=== PATIENT | female | born 1955 | race Caucasian/White ===

== ENCOUNTER 2022-05-05 12:04 | Inpatient (IN) | payer OTHER ==
[2022-05-05] MEDS ORDERED: ALBUTEROL SO4 2.5/IPRATROPIUM 0.5 INH SOL 3 ML VIAL.NEB. NEB ONE ×2 (12:31→13:42)
[2022-05-05] MEDS ORDERED: methylPREDNISolone NA SUCC 125 MG/2 ML VIAL IVPB ONE (12:32)
[2022-05-05] MEDS ORDERED: SODIUM CHLORIDE 1,000 ML IV STA (12:35)
[2022-05-05 12:53] LABS: VENOUS O2 SATURATION 98.8 % (70-80); VENOUS PH 7.408 (7.310-7.410)
[2022-05-05 12:55] LABS: HEMATOCRIT 28.8 % (32.4-45.2); HEMOGLOBIN 9.7 GM/dL (10.7-15.3); MCH 33.3 pg (25.7-33.7); MCHC 33.8 g/dl (32.0-36.0); MEAN CELL VOLUME 98.6 fl (80-96); MEAN PLT VOLUME 9.3 fl (7.5-11.1); PLATELET COUNT 99 10^3/uL (134-434); RBC 2.92 M/mm3 (3.60-5.2); RDW 13.4 % (11.6-15.6)
[2022-05-05 13:02] LABS: INR 1.16 (0.83-1.09); PROTHROMBIN TIME (PATIENT) 13.4 SEC (9.7-13.0)
[2022-05-05 13:05] LABS: ACTIVATED PTT 25.6 SECONDS (25.2-36.5)
[2022-05-05 13:14] LABS: CALCIUM 7.9 mg/dL (8.5-10.1)
[2022-05-05 13:15] LABS: ALBUMIN 1.9 g/dl (3.4-5.0); BLOOD UREA NITROGEN 48.1 mg/dL (7-18)
[2022-05-05 13:18] LABS: CREATININE 1.1 mg/dL (0.55-1.3)
[2022-05-05 13:19] LABS: BILIRUBIN,TOTAL 0.7 mg/dL (0.2-1); TOT PROT 5.5 g/dl (6.4-8.2)
[2022-05-05 13:22] LABS: ARTERIAL BLD GAS O2 SATURATION 94.3 % (95-98); ARTERIAL BLOOD GAS BASE EXCESS 0.3 mmol/L (-2-2); ARTERIAL BLOOD GAS PO2 72.9 mmHg (80-100); ARTERIAL BLOOD GAS pH 7.374 (7.350-7.450)
[2022-05-05 13:22] LABS: ANISOCYTOSIS 0; HELMET CELLS 0; HOWELL-JOLLY BODIES 0; MACROCYTOSIS 0; OVALOCYTE 0; ROULEAU 0; SICKELED CELLS 0; TARGET CELLS 0; TEAR DROP CELLS 0; TOXIC GRANULATION 0
[2022-05-05 13:27] LABS: ALLENS TEST POSITIVE
[2022-05-05] MEDS ORDERED: ACETAMINOPHEN 1000 MG/100 ML BAG IVPB ONE (13:54)
[2022-05-05] MEDS: ALBUTEROL SO4 2.5/IPRATROPIUM 0.5 INH SOL 3 ML VIAL.NEB. NEB SCH ×2 (14:01→14:20)
[2022-05-05] MEDS ORDERED: ACETAMINOPHEN INJECTION 100 ML IVPB ONE (14:02)
[2022-05-05] MEDS ORDERED: CARBIDOPA/LEVODOPA 10/100 TABLET (FP) PO ONE (15:31)
[2022-05-05] MEDS ORDERED: DEXMEDETOMIDINE PREMIX 400 MCG/100 ML BAG IVPB SCH (20:00)
[2022-05-05] MEDS: DEXMEDETOMIDINE PREMIX 400 MCG/100 ML BAG IVPB SCH (23:22)
[2022-05-06 00:01] LABS: EPI CELLS 18 /uL (0-25.1); HYALINE CASTS 1 /uL (0-3.1); URINE APPEARANCE CLEAR; URINE BACTERIA 913 /uL (0-1359); URINE BILIRUBIN NEGATIVE (NEGATIVE); URINE COLOR YELLOW; URINE GLUCOSE (UA) NEGATIVE (NEGATIVE); URINE KETONE NEGATIVE (NEGATIVE); URINE LEUK ESTERASE 2+ (NEGATIVE); URINE NITRITE NEGATIVE (NEGATIVE); URINE PROTEIN 2+ (NEGATIVE); URINE UROBILINOGEN 0.2 mg/dL (0.2-1.0); URINE WBC 148 /uL (0-25.8)
[2022-05-06 01:45] LABS: URINE RBC 48.9 /uL (0-23.9); YEAST MODERATE (NEGATIVE)
[2022-05-06] MEDS ORDERED: LACTATED RINGERS SOLUTION 1,000 ML/1,000 ML INFUS.BAG IV STA (06:38)
[2022-05-06 12:50] LABS: HEMOGLOBIN 9.7 GM/dL (10.7-15.3); MCH 32.9 pg (25.7-33.7); MCHC 33.6 g/dl (32.0-36.0); MEAN CELL VOLUME 97.9 fl (80-96); MEAN PLT VOLUME 9.2 fl (7.5-11.1); PLATELET COUNT 104 10^3/uL (134-434); RBC 2.96 M/mm3 (3.60-5.2); RDW 13.8 % (11.6-15.6); WHITE BLOOD COUNT 10.2 K/mm3 (4.0-10.0)
[2022-05-06 13:19] LABS: CALCIUM 8.2 mg/dL (8.5-10.1)
[2022-05-06 13:20] LABS: BLOOD UREA NITROGEN 49.4 mg/dL (7-18)
[2022-05-06 13:21] LABS: MAGNESIUM 2.4 mg/dL (1.8-2.4)
[2022-05-06 13:23] LABS: CREATININE 0.8 mg/dL (0.55-1.3); PHOSPHOROUS 3.3 mg/dL (2.5-4.9)
[2022-05-06] MEDS ORDERED: DEXTROSE 5%-0.45% SALINE 1,000 ML IV SCH (16:45)
[2022-05-06] MEDS ORDERED: ALBUTEROL SO4 0.083% IH SOL 2.5 MG/3 ML VIAL.NEB. NEB PRN (16:56)
[2022-05-06] MEDS ORDERED: LORazepam 2 MG/ML SDV VIAL IVPUSH ONE (18:02)
[2022-05-06 19:44] LABS: ARTERIAL BLD GAS O2 SATURATION 99.7 % (95-98); ARTERIAL BLOOD GAS BASE EXCESS 0.2 mmol/L (-2-2); ARTERIAL BLOOD GAS PO2 313.1 mmHg (80-100); ARTERIAL BLOOD GAS pH 7.345 (7.350-7.450)
[2022-05-06 19:46] LABS: VENT MODE S/T; VENT RATE 16
[2022-05-06] MEDS: CARBIDOPA/LEVODOPA 10/100 TABLET (FP) PO SCH (21:10)
[2022-05-06] MEDS ORDERED: DOPAMINE 400 MG/D5W - 400,000 MCG/250 ML INFUS.BAG IVPB ONE (23:20)
[2022-05-07] MEDS: DEXMEDETOMIDINE PREMIX 400 MCG/100 ML BAG IVPB SCH ×2 (00:05→22:25)
[2022-05-07] MEDS: NOREPINEPHRINE BITARTRATE/D5W 8 MG/250 ML BAG IVPB SCH ×2 (00:12→23:55)
[2022-05-07] MEDS: PIPERACILLIN/TAZOB 3.375 GM 3.375 GM in DEXTROSE 5%-WATER - 50 ML IVPB SCH ×3 (00:17→10:00)
[2022-05-07] MEDS ORDERED: ACETAMINOPHEN 1000 MG/100 ML BAG IVPB PRN (03:02)
[2022-05-07] MEDS: CARBIDOPA/LEVODOPA 10/100 TABLET (FP) PO SCH ×4 (06:57→21:43)
[2022-05-07] MEDS ORDERED: LACTATED RINGERS SOLUTION 1000 ML INFUS.BAG IV ONE (07:13)
[2022-05-07] MEDS ORDERED: IBUPROFEN 800 MG/8 ML IJ IVPB ONE (07:20)
[2022-05-07 07:24] LABS: HEMATOCRIT 32.3 % (32.4-45.2); HEMOGLOBIN 10.7 GM/dL (10.7-15.3); MCHC 33.2 g/dl (32.0-36.0); MEAN CELL VOLUME 99.4 fl (80-96); MEAN PLT VOLUME 9.8 fl (7.5-11.1); PLATELET COUNT 179 10^3/uL (134-434); RBC 3.25 M/mm3 (3.60-5.2); RDW 13.9 % (11.6-15.6); WHITE BLOOD COUNT 16.6 K/mm3 (4.0-10.0)
[2022-05-07 08:16] LABS: ALBUMIN 2.1 g/dl (3.4-5.0); BLOOD UREA NITROGEN 62.2 mg/dL (7-18); CALCIUM 8.5 mg/dL (8.5-10.1)
[2022-05-07 08:21] LABS: BILIRUBIN,TOTAL 0.6 mg/dL (0.2-1); TOT PROT 6.3 g/dl (6.4-8.2)
[2022-05-07] MEDS ORDERED: PIPERACILLIN/TAZOB 3.375 GM 3.375 GM in DEXTROSE 5%-WATER - 50 ML IVPB SCH (09:00)
[2022-05-07] MEDS: ENOXAPARIN NA (PORCINE) 40 MG/0.4 ML DISP.SYRIN SQ SCH (10:03)
[2022-05-07] MEDS: PANTOPRAZOLE SODIUM 40 MG VIAL IVPUSH SCH (10:03)
[2022-05-07] MEDS: ESCITALOPRAM OXALATE 20 MG TABLET PO SCH (10:04)
[2022-05-07] MEDS: buPROPion HCL 75 MG TABLET PO SCH (10:05)
[2022-05-07] MEDS ORDERED: DEXTROSE 5%-0.45% SALINE 1,000 ML IV SCH (13:00)
[2022-05-07] MEDS: CARBIDOPA/LEVODOPA 25/250 TABLET (FP) PO SCH (17:00)
[2022-05-07] MEDS: PIPERACILLIN/TAZOB 4.5 GM 4.5 GM in DEXTROSE 5%-WATER 100 ML IVPB SCH (18:13)
[2022-05-07] MEDS: ACETAMINOPHEN 1000 MG/100 ML BAG IVPB PRN (18:54)
[2022-05-08] MEDS: PIPERACILLIN/TAZOB 4.5 GM 4.5 GM in DEXTROSE 5%-WATER 100 ML IVPB SCH ×3 (01:39→17:32)
[2022-05-08] MEDS: ACETAMINOPHEN 1000 MG/100 ML BAG IVPB PRN ×2 (01:40→11:56)
[2022-05-08 05:47] LABS: ARTERIAL BLD GAS O2 SATURATION 96.9 % (95-98); ARTERIAL BLOOD GAS BASE EXCESS 2.3 mmol/L (-2-2); ARTERIAL BLOOD GAS pH 7.254 (7.350-7.450)
[2022-05-08] MEDS: CARBIDOPA/LEVODOPA 10/100 TABLET (FP) PO SCH ×4 (06:15→20:54)
[2022-05-08 06:21] LABS: ALLENS TEST POSITIVE
[2022-05-08 06:22] LABS: VENT MODE S/T; VENT RATE 16
[2022-05-08 07:36] LABS: HEMATOCRIT 29.4 % (32.4-45.2); HEMOGLOBIN 9.6 GM/dL (10.7-15.3); MCH 33.2 pg (25.7-33.7); MCHC 32.6 g/dl (32.0-36.0); MEAN CELL VOLUME 101.9 fl (80-96); MEAN PLT VOLUME 9.7 fl (7.5-11.1); PLATELET COUNT 144 10^3/uL (134-434); RBC 2.88 M/mm3 (3.60-5.2); RDW 14.3 % (11.6-15.6); WHITE BLOOD COUNT 16.6 K/mm3 (4.0-10.0)
[2022-05-08 07:56] LABS: ALBUMIN 1.9 g/dl (3.4-5.0); BLOOD UREA NITROGEN 44.4 mg/dL (7-18); CALCIUM 8.1 mg/dL (8.5-10.1)
[2022-05-08 08:00] LABS: CREATININE 0.8 mg/dL (0.55-1.3)
[2022-05-08 08:02] LABS: BILIRUBIN,TOTAL 0.6 mg/dL (0.2-1); TOT PROT 5.8 g/dl (6.4-8.2)
[2022-05-08 08:55] LABS: VENOUS BASE EXCESS -0.7 mmol/L (-2-2); VENOUS O2 SATURATION 39.3 % (70-80); VENOUS PCO2 60.6 mmHg (38-52); VENOUS PH 7.275 (7.310-7.410)
[2022-05-08] MEDS ORDERED: SODIUM CHLORIDE 1,000 ML IV SCH (10:00)
[2022-05-08] MEDS: ENOXAPARIN NA (PORCINE) 40 MG/0.4 ML DISP.SYRIN SQ SCH (10:31)
[2022-05-08] MEDS: PANTOPRAZOLE SODIUM 40 MG VIAL IVPUSH SCH (10:31)
[2022-05-08] MEDS: buPROPion HCL 75 MG TABLET PO SCH (10:32)
[2022-05-08] MEDS: ESCITALOPRAM OXALATE 20 MG TABLET PO SCH (10:32)
[2022-05-08] MEDS: DEXTROSE 5%-0.45% SALINE 1,000 ML IV SCH (13:27)
[2022-05-08] MEDS: CARBIDOPA/LEVODOPA 25/250 TABLET (FP) PO SCH (17:17)
[2022-05-08] MEDS: DEXMEDETOMIDINE PREMIX 400 MCG/100 ML BAG IVPB SCH (21:28)
[2022-05-08 21:54] LABS: ARTERIAL BLD GAS O2 SATURATION 95.7 % (95-98); ARTERIAL BLOOD GAS BASE EXCESS 4.8 mmol/L (-2-2); ARTERIAL BLOOD GAS PO2 85.2 mmHg (80-100); ARTERIAL BLOOD GAS pH 7.348 (7.350-7.450)
[2022-05-08 21:58] LABS: ALLENS TEST POSITIVE
[2022-05-08 21:59] LABS: PT'S TEMP BIPAP; VENT RATE 16
[2022-05-09] MEDS: NOREPINEPHRINE BITARTRATE/D5W 8 MG/250 ML BAG IVPB SCH (01:13)
[2022-05-09] MEDS: ACETAMINOPHEN 1000 MG/100 ML BAG IVPB PRN (01:30)
[2022-05-09] MEDS: PIPERACILLIN/TAZOB 4.5 GM 4.5 GM in DEXTROSE 5%-WATER 100 ML IVPB SCH ×3 (01:30→17:50)
[2022-05-09] MEDS: CARBIDOPA/LEVODOPA 10/100 TABLET (FP) PO SCH ×4 (05:36→21:13)
[2022-05-09 06:45] LABS: ARTERIAL BLD GAS O2 SATURATION 99.1 % (95-98); ARTERIAL BLOOD GAS BASE EXCESS 7.3 mmol/L (-2-2); ARTERIAL BLOOD GAS PO2 171.9 mmHg (80-100); ARTERIAL BLOOD GAS pH 7.372 (7.350-7.450)
[2022-05-09 07:53] LABS: CALCIUM 7.7 mg/dL (8.5-10.1)
[2022-05-09 07:54] LABS: ALBUMIN 1.7 g/dl (3.4-5.0); BLOOD UREA NITROGEN 27.8 mg/dL (7-18); MAGNESIUM 2.2 mg/dL (1.8-2.4)
[2022-05-09 07:56] LABS: PHOSPHOROUS 2.2 mg/dL (2.5-4.9)
[2022-05-09 07:57] LABS: CREATININE 0.6 mg/dL (0.55-1.3)
[2022-05-09 07:59] LABS: BILIRUBIN,TOTAL 0.7 mg/dL (0.2-1); TOT PROT 5.5 g/dl (6.4-8.2)
[2022-05-09 08:02] LABS: HEMATOCRIT 26.6 % (32.4-45.2); HEMOGLOBIN 8.7 GM/dL (10.7-15.3); MCH 32.9 pg (25.7-33.7); MCHC 32.6 g/dl (32.0-36.0); MEAN CELL VOLUME 100.9 fl (80-96); MEAN PLT VOLUME 9.5 fl (7.5-11.1); PLATELET COUNT 162 10^3/uL (134-434); RBC 2.63 M/mm3 (3.60-5.2); RDW 14.2 % (11.6-15.6); WHITE BLOOD COUNT 15.6 K/mm3 (4.0-10.0)
[2022-05-09] MEDS: ESCITALOPRAM OXALATE 20 MG TABLET PO SCH (11:02)
[2022-05-09] MEDS: buPROPion HCL 75 MG TABLET PO SCH (11:03)
[2022-05-09] MEDS: PANTOPRAZOLE SODIUM 40 MG VIAL IVPUSH SCH (11:03)
[2022-05-09] MEDS: ENOXAPARIN NA (PORCINE) 40 MG/0.4 ML DISP.SYRIN SQ SCH (11:03)
[2022-05-09] MEDS ORDERED: POTASSIUM PHOSPHATE 15 MM in SODIUM CHLORIDE 250 ML IVPB ONE (11:47)
[2022-05-09] MEDS: DEXTROSE 5%-0.45% SALINE 1,000 ML IV SCH (13:17)
[2022-05-09] MEDS: CARBIDOPA/LEVODOPA 25/250 TABLET (FP) PO SCH (17:50)
[2022-05-09] MEDS: DEXMEDETOMIDINE PREMIX 400 MCG/100 ML BAG IVPB SCH (21:14)
[2022-05-10] MEDS: NOREPINEPHRINE BITARTRATE/D5W 8 MG/250 ML BAG IVPB SCH (00:29)
[2022-05-10] MEDS: PIPERACILLIN/TAZOB 4.5 GM 4.5 GM in DEXTROSE 5%-WATER 100 ML IVPB SCH ×3 (01:39→17:48)
[2022-05-10 06:14] LABS: ARTERIAL BLD GAS O2 SATURATION 99.6 % (95-98); ARTERIAL BLOOD GAS BASE EXCESS 7.8 mmol/L (-2-2); ARTERIAL BLOOD GAS PO2 253.5 mmHg (80-100); ARTERIAL BLOOD GAS pH 7.422 (7.350-7.450)
[2022-05-10] MEDS: CARBIDOPA/LEVODOPA 10/100 TABLET (FP) PO SCH ×4 (06:16→22:06)
[2022-05-10 09:07] LABS: HEMATOCRIT 25.9 % (32.4-45.2); HEMOGLOBIN 8.6 GM/dL (10.7-15.3); MCH 33.1 pg (25.7-33.7); MCHC 33.2 g/dl (32.0-36.0); MEAN CELL VOLUME 99.8 fl (80-96); PLATELET COUNT 199 10^3/uL (134-434); RBC 2.59 M/mm3 (3.60-5.2); RDW 13.8 % (11.6-15.6); WHITE BLOOD COUNT 12.9 K/mm3 (4.0-10.0)
[2022-05-10 09:23] LABS: BLOOD UREA NITROGEN 20.1 mg/dL (7-18); CALCIUM 7.9 mg/dL (8.5-10.1); MAGNESIUM 2.2 mg/dL (1.8-2.4)
[2022-05-10 09:24] LABS: ALBUMIN 1.6 g/dl (3.4-5.0)
[2022-05-10 09:26] LABS: PHOSPHOROUS 1.9 mg/dL (2.5-4.9)
[2022-05-10 09:27] LABS: CREATININE 0.6 mg/dL (0.55-1.3)
[2022-05-10 09:28] LABS: BILIRUBIN,TOTAL 0.6 mg/dL (0.2-1); TOT PROT 5.6 g/dl (6.4-8.2)
[2022-05-10] MEDS: ESCITALOPRAM OXALATE 20 MG TABLET PO SCH (09:48)
[2022-05-10] MEDS: buPROPion HCL 75 MG TABLET PO SCH (09:49)
[2022-05-10] MEDS: ENOXAPARIN NA (PORCINE) 40 MG/0.4 ML DISP.SYRIN SQ SCH (10:37)
[2022-05-10] MEDS: PANTOPRAZOLE SODIUM 40 MG VIAL IVPUSH SCH (10:37)
[2022-05-10] MEDS: CARBIDOPA/LEVODOPA 25/250 TABLET (FP) PO SCH (16:29)
[2022-05-10] MEDS ORDERED: AMINO ACIDS 4.25%/D5W 1,000 ML IV SCH (17:30)
[2022-05-10] MEDS ORDERED: MULTIVIT INJ. ADULT COMBO WITH VIT K 1 COMBO 10 ML VIAL IV SCH (17:30)
[2022-05-10] MEDS: DEXMEDETOMIDINE PREMIX 400 MCG/100 ML BAG IVPB SCH (22:06)
[2022-05-10] MEDS ORDERED: ALBUTEROL SO4 0.083% IH SOL 2.5 MG/3 ML VIAL.NEB. NEB PRN (22:59)
[2022-05-11] MEDS: PIPERACILLIN/TAZOB 4.5 GM 4.5 GM in DEXTROSE 5%-WATER 100 ML IVPB SCH ×3 (02:40→17:50)
[2022-05-11 07:35] LABS: BASO % 0.1 % (0-2.0); EOS % 1.5 % (0-4.5); HEMATOCRIT 26.1 % (32.4-45.2); HEMOGLOBIN 8.5 GM/dL (10.7-15.3); LYMPH % 8.1 % (8-40); MCH 31.8 pg (25.7-33.7); MCHC 32.4 g/dl (32.0-36.0); MEAN CELL VOLUME 98.1 fl (80-96); MEAN PLT VOLUME 9.1 fl (7.5-11.1); NEUT % 89.3 % (42.8-82.8); PLATELET COUNT 223 10^3/uL (134-434); RBC 2.66 M/mm3 (3.60-5.2); RDW 13.9 % (11.6-15.6)
[2022-05-11 07:39] LABS: ALBUMIN 1.6 g/dl (3.4-5.0); BLOOD UREA NITROGEN 20.2 mg/dL (7-18); CALCIUM 7.7 mg/dL (8.5-10.1)
[2022-05-11 07:42] LABS: CREATININE 0.5 mg/dL (0.55-1.3); PHOSPHOROUS 2.1 mg/dL (2.5-4.9)
[2022-05-11 07:42] LABS: ARTERIAL BLD GAS O2 SATURATION 98.6 % (95-98); ARTERIAL BLOOD GAS BASE EXCESS 14.5 mmol/L (-2-2); ARTERIAL BLOOD GAS pH 7.489 (7.350-7.450)
[2022-05-11 07:44] LABS: BILIRUBIN,TOTAL 0.7 mg/dL (0.2-1); TOT PROT 5.6 g/dl (6.4-8.2)
[2022-05-11 07:44] LABS: ALLENS TEST POSITIVE
[2022-05-11] MEDS: ENOXAPARIN NA (PORCINE) 40 MG/0.4 ML DISP.SYRIN SQ SCH (10:20)
[2022-05-11] MEDS: PANTOPRAZOLE SODIUM 40 MG VIAL IVPUSH SCH (11:15)
[2022-05-11] MEDS: AMINO ACIDS 4.25%/D5W 1,000 ML IV SCH (17:50)
[2022-05-11] MEDS ORDERED: PIPERACILLIN/TAZOBACTAM 4.5 GM VIAL IVPB ONE (23:36)
[2022-05-12] MEDS: PIPERACILLIN/TAZOB 4.5 GM 4.5 GM in DEXTROSE 5%-WATER 100 ML IVPB SCH ×3 (01:12→18:15)
[2022-05-12 07:06] LABS: BASO % 0.4 % (0-2.0); EOS % 1.2 % (0-4.5); HEMATOCRIT 25.9 % (32.4-45.2); HEMOGLOBIN 8.7 GM/dL (10.7-15.3); LYMPH % 8.8 % (8-40); MCH 32.5 pg (25.7-33.7); MCHC 33.6 g/dl (32.0-36.0); MEAN CELL VOLUME 96.8 fl (80-96); MEAN PLT VOLUME 8.9 fl (7.5-11.1); MONO % 1.5 % (3.8-10.2); NEUT % 88.1 % (42.8-82.8); PLATELET COUNT 257 10^3/uL (134-434); RBC 2.68 M/mm3 (3.60-5.2); RDW 14.2 % (11.6-15.6); WHITE BLOOD COUNT 9.9 K/mm3 (4.0-10.0)
[2022-05-12 07:28] LABS: BLOOD UREA NITROGEN 24.6 mg/dL (7-18); CALCIUM 7.6 mg/dL (8.5-10.1)
[2022-05-12 07:29] LABS: ALBUMIN 1.5 g/dl (3.4-5.0)
[2022-05-12 07:31] LABS: CREATININE 0.5 mg/dL (0.55-1.3)
[2022-05-12 07:33] LABS: BILIRUBIN,TOTAL 0.6 mg/dL (0.2-1); TOT PROT 5.5 g/dl (6.4-8.2)
[2022-05-12] MEDS: ALBUTEROL SO4 2.5/IPRATROPIUM 0.5 INH SOL 3 ML VIAL.NEB. NEB SCH ×4 (08:57→20:45)
[2022-05-12] MEDS: KCL 10 MEQ IVPB 10 MEQ/100 ML INFUS.BAG IVPB SCH ×2 (10:10→10:11)
[2022-05-12] MEDS: PANTOPRAZOLE SODIUM 40 MG VIAL IVPUSH SCH (10:10)
[2022-05-12] MEDS: POLYETHYLENE GLYCOL (HEALTHYLAX) 3350 17 GM PACKET NGT SCH ×2 (10:10→10:21)
[2022-05-12] MEDS: LACTOBACILLUS ACIDOPHILUS 1 TABLET NGT SCH (10:10)
[2022-05-12] MEDS: ENOXAPARIN NA (PORCINE) 40 MG/0.4 ML DISP.SYRIN SQ SCH (10:10)
[2022-05-12] MEDS: DEXTROSE 5%-0.45% SALINE 1,000 ML IV SCH ×3 (10:16→23:00)
[2022-05-12] MEDS: CARBIDOPA/LEVODOPA 10/100 TABLET (FP) NGT SCH ×4 (10:18→21:54)
[2022-05-12] MEDS: ESCITALOPRAM OXALATE 5 MG/5 ML NGT SCH (10:18)
[2022-05-12] MEDS: AMINO ACIDS 4.25%/D5W 1,000 ML IV SCH (18:14)
[2022-05-13] MEDS: PIPERACILLIN/TAZOB 4.5 GM 4.5 GM in DEXTROSE 5%-WATER 100 ML IVPB SCH ×3 (02:31→17:26)
[2022-05-13 07:25] LABS: HEMATOCRIT 24.5 % (32.4-45.2); HEMOGLOBIN 8.1 GM/dL (10.7-15.3); MCH 31.8 pg (25.7-33.7); MCHC 32.9 g/dl (32.0-36.0); MEAN CELL VOLUME 96.7 fl (80-96); MEAN PLT VOLUME 9.1 fl (7.5-11.1); PLATELET COUNT 262 10^3/uL (134-434); RBC 2.53 M/mm3 (3.60-5.2); RDW 13.9 % (11.6-15.6); WHITE BLOOD COUNT 11.7 K/mm3 (4.0-10.0)
[2022-05-13 07:54] LABS: ALBUMIN 1.4 g/dl (3.4-5.0); CALCIUM 7.2 mg/dL (8.5-10.1)
[2022-05-13 07:55] LABS: BLOOD UREA NITROGEN 19.8 mg/dL (7-18); MAGNESIUM 1.8 mg/dL (1.8-2.4)
[2022-05-13 07:57] LABS: CREATININE 0.4 mg/dL (0.55-1.3)
[2022-05-13 07:58] LABS: PHOSPHOROUS 2.3 mg/dL (2.5-4.9)
[2022-05-13 07:59] LABS: BILIRUBIN,TOTAL 0.6 mg/dL (0.2-1)
[2022-05-13] MEDS: ALBUTEROL SO4 2.5/IPRATROPIUM 0.5 INH SOL 3 ML VIAL.NEB. NEB SCH ×4 (08:10→20:05)
[2022-05-13 08:48] LABS: ANISOCYTOSIS 1+; MACROCYTOSIS 0
[2022-05-13] MEDS: LACTOBACILLUS ACIDOPHILUS 1 TABLET NGT SCH (09:58)
[2022-05-13] MEDS: ENOXAPARIN NA (PORCINE) 40 MG/0.4 ML DISP.SYRIN SQ SCH (09:58)
[2022-05-13] MEDS: PANTOPRAZOLE SODIUM 40 MG VIAL IVPUSH SCH (09:58)
[2022-05-13] MEDS: CARBIDOPA/LEVODOPA 10/100 TABLET (FP) NGT SCH ×4 (10:00→21:10)
[2022-05-13] MEDS: POLYETHYLENE GLYCOL (HEALTHYLAX) 3350 17 GM PACKET NGT SCH (10:00)
[2022-05-13] MEDS: ESCITALOPRAM OXALATE 5 MG/5 ML NGT SCH (11:17)
[2022-05-13] MEDS: AMINO ACIDS 4.25%/D5W 1,000 ML IV SCH (16:34)
[2022-05-13] MEDS: AMINO ACIDS/PROTEIN HYDROLYS 30 ML LIQUID.PKT GT SCH (16:34)
[2022-05-14] MEDS: PIPERACILLIN/TAZOB 4.5 GM 4.5 GM in DEXTROSE 5%-WATER 100 ML IVPB SCH ×3 (02:30→17:21)
[2022-05-14] MEDS: DEXTROSE 5%-0.45% SALINE 1,000 ML IV SCH ×2 (03:23→12:28)
[2022-05-14 07:42] LABS: BASO % 0.2 % (0-2.0); EOS % 1.7 % (0-4.5); HEMOGLOBIN 7.1 GM/dL (10.7-15.3); LYMPH % 6.5 % (8-40); MCH 33.1 pg (25.7-33.7); MCHC 33.9 g/dl (32.0-36.0); MEAN CELL VOLUME 97.6 fl (80-96); MEAN PLT VOLUME 9.5 fl (7.5-11.1); MONO % 3.1 % (3.8-10.2); NEUT % 88.5 % (42.8-82.8); PLATELET COUNT 269 10^3/uL (134-434); RBC 2.15 M/mm3 (3.60-5.2); RDW 13.4 % (11.6-15.6); WHITE BLOOD COUNT 11.2 K/mm3 (4.0-10.0)
[2022-05-14] MEDS ORDERED: SODIUM CHLORIDE 0.45% 250 ML IV SCH (07:45)
[2022-05-14 08:01] LABS: ALBUMIN 1.2 g/dl (3.4-5.0); CALCIUM 7.4 mg/dL (8.5-10.1); MAGNESIUM 1.9 mg/dL (1.8-2.4)
[2022-05-14 08:04] LABS: CREATININE 0.3 mg/dL (0.55-1.3); PHOSPHOROUS 2.5 mg/dL (2.5-4.9)
[2022-05-14 08:05] LABS: BILIRUBIN,TOTAL 0.3 mg/dL (0.2-1)
[2022-05-14 08:06] LABS: TOT PROT 4.7 g/dl (6.4-8.2)
[2022-05-14] MEDS: ALBUTEROL SO4 2.5/IPRATROPIUM 0.5 INH SOL 3 ML VIAL.NEB. NEB SCH ×4 (08:33→20:15)
[2022-05-14] MEDS: AMINO ACIDS/PROTEIN HYDROLYS 30 ML LIQUID.PKT GT SCH (08:48)
[2022-05-14] MEDS: LACTOBACILLUS ACIDOPHILUS 1 TABLET NGT SCH (09:17)
[2022-05-14] MEDS: PANTOPRAZOLE SODIUM 40 MG VIAL IVPUSH SCH ×2 (09:18→21:49)
[2022-05-14] MEDS: ENOXAPARIN NA (PORCINE) 40 MG/0.4 ML DISP.SYRIN SQ SCH (09:18)
[2022-05-14] MEDS: ASCORBIC ACID 500 MG/5 ML UNIT DOSE CUP GT SCH (09:18)
[2022-05-14] MEDS: POLYETHYLENE GLYCOL (HEALTHYLAX) 3350 17 GM PACKET NGT SCH (09:18)
[2022-05-14] MEDS: ESCITALOPRAM OXALATE 5 MG/5 ML NGT SCH (09:19)
[2022-05-14] MEDS ORDERED: POTASSIUM CHLORIDE ORAL LIQUID 20 MEQ/15 ML PO ONE ×2 (10:34→18:00)
[2022-05-14 12:30] LABS: INR 1.18 (0.83-1.09); PROTHROMBIN TIME (PATIENT) 13.7 SEC (9.7-13.0)
[2022-05-14] MEDS ORDERED: SODIUM CHLORIDE 500 ML IV SCH (12:30)
[2022-05-14 12:33] LABS: ACTIVATED PTT 18.6 SECONDS (25.2-36.5)
[2022-05-14 15:20] LABS: ANISOCYTOSIS 2+; MACROCYTOSIS 0
[2022-05-14 21:49] LABS: BASO % 0.3 % (0-2.0); EOS % 1.5 % (0-4.5); LYMPH % 8.9 % (8-40); MCH 30.2 pg (25.7-33.7); MCHC 33.3 g/dl (32.0-36.0); MEAN CELL VOLUME 90.7 fl (80-96); MEAN PLT VOLUME 9.1 fl (7.5-11.1); MONO % 4.3 % (3.8-10.2); PLATELET COUNT 260 10^3/uL (134-434); RBC 2.98 M/mm3 (3.60-5.2); RDW 18.2 % (11.6-15.6); WHITE BLOOD COUNT 10.7 K/mm3 (4.0-10.0)
[2022-05-15] MEDS: PIPERACILLIN/TAZOB 4.5 GM 4.5 GM in DEXTROSE 5%-WATER 100 ML IVPB SCH ×2 (01:13→09:02)
[2022-05-15] MEDS ORDERED: SODIUM CHLORIDE 250 ML IV STA ×2 (07:33→08:57)
[2022-05-15 07:53] LABS: BASO % 0.4 % (0-2.0); EOS % 1.9 % (0-4.5); HEMATOCRIT 26.9 % (32.4-45.2); HEMOGLOBIN 9.2 GM/dL (10.7-15.3); LYMPH % 8.9 % (8-40); MCH 31.2 pg (25.7-33.7); MEAN CELL VOLUME 91.7 fl (80-96); MEAN PLT VOLUME 9.6 fl (7.5-11.1); MONO % 4.5 % (3.8-10.2); NEUT % 84.3 % (42.8-82.8); PLATELET COUNT 272 10^3/uL (134-434); RBC 2.93 M/mm3 (3.60-5.2); RDW 18.7 % (11.6-15.6); WHITE BLOOD COUNT 9.4 K/mm3 (4.0-10.0)
[2022-05-15 08:10] LABS: ALBUMIN 1.3 g/dl (3.4-5.0); BLOOD UREA NITROGEN 15.8 mg/dL (7-18); CALCIUM 7.2 mg/dL (8.5-10.1)
[2022-05-15 08:12] LABS: MAGNESIUM 1.9 mg/dL (1.8-2.4)
[2022-05-15 08:13] LABS: CREATININE 0.4 mg/dL (0.55-1.3)
[2022-05-15] MEDS: ALBUTEROL SO4 2.5/IPRATROPIUM 0.5 INH SOL 3 ML VIAL.NEB. NEB SCH ×4 (08:13→20:39)
[2022-05-15 08:14] LABS: PHOSPHOROUS 2.2 mg/dL (2.5-4.9)
[2022-05-15 08:15] LABS: BILIRUBIN,TOTAL 0.3 mg/dL (0.2-1); TOT PROT 4.9 g/dl (6.4-8.2)
[2022-05-15] MEDS ORDERED: SODIUM CHLORIDE 500 ML IV STA (08:34)
[2022-05-15] MEDS: PANTOPRAZOLE SODIUM 40 MG VIAL IVPUSH SCH ×2 (09:02→21:11)
[2022-05-15] MEDS: LACTOBACILLUS ACIDOPHILUS 1 TABLET NGT SCH (09:03)
[2022-05-15] MEDS: ESCITALOPRAM OXALATE 5 MG/5 ML NGT SCH (09:03)
[2022-05-15] MEDS: POLYETHYLENE GLYCOL (HEALTHYLAX) 3350 17 GM PACKET NGT SCH (09:03)
[2022-05-15] MEDS: MIDODRINE HCL 5 MG TABLET PO SCH ×3 (09:03→17:58)
[2022-05-15] MEDS: ASCORBIC ACID 500 MG/5 ML UNIT DOSE CUP GT SCH (09:04)
[2022-05-15] MEDS: DEXTROSE 5%-0.45% SALINE 1,000 ML IV SCH ×2 (09:52→21:11)
[2022-05-15] MEDS: CARBIDOPA/LEVODOPA 10/100 TABLET (FP) NGT SCH ×4 (10:29→21:13)
[2022-05-15] MEDS: COLLAGENASE CLOSTRIDIUM HIST. 30 GRAMS TUBE TP SCH (13:26)
[2022-05-15] MEDS ORDERED: PATIENT'S OWN MEDICATION (NON-FORMULARY) (Midodrine Hcl [Midodrine Hcl] 10 MG Tablet) PO SCH (14:00)
[2022-05-15] MEDS ORDERED: AMINO ACIDS 4.25%/D5W 1,000 ML IV SCH (16:15)
[2022-05-15] MEDS: PIPERACILLIN/TAZOB 3.375 GM 3.375 GM in DEXTROSE 5%-WATER - 50 ML IVPB SCH (17:58)
[2022-05-15] MEDS: HEPARIN NA (PORCINE) 5,000 UNITS/ML 1ML VIAL SQ SCH (21:11)
[2022-05-16] MEDS: PIPERACILLIN/TAZOB 3.375 GM 3.375 GM in DEXTROSE 5%-WATER - 50 ML IVPB SCH ×3 (02:00→17:38)
[2022-05-16] MEDS ORDERED: LACTATED RINGERS SOLUTION 1000 ML INFUS.BAG IV ONE ×4 (02:43→05:24)
[2022-05-16] MEDS: HEPARIN NA (PORCINE) 5,000 UNITS/ML 1ML VIAL SQ SCH ×3 (05:37→22:17)
[2022-05-16 07:23] LABS: BASO % 0.7 % (0-2.0); EOS % 1.9 % (0-4.5); HEMATOCRIT 25.2 % (32.4-45.2); HEMOGLOBIN 8.3 GM/dL (10.7-15.3); LYMPH % 12.7 % (8-40); MCH 30.2 pg (25.7-33.7); MCHC 32.9 g/dl (32.0-36.0); MEAN CELL VOLUME 91.7 fl (80-96); MEAN PLT VOLUME 10.5 fl (7.5-11.1); MONO % 5.8 % (3.8-10.2); NEUT % 78.9 % (42.8-82.8); PLATELET COUNT 239 10^3/uL (134-434); RBC 2.74 M/mm3 (3.60-5.2); RDW 18.4 % (11.6-15.6); WHITE BLOOD COUNT 7.9 K/mm3 (4.0-10.0)
[2022-05-16] MEDS ORDERED: SODIUM CHLORIDE 250 ML IV STA (08:08)
[2022-05-16 08:31] LABS: ALBUMIN 1.3 g/dl (3.4-5.0); BLOOD UREA NITROGEN 15.2 mg/dL (7-18); CALCIUM 7.2 mg/dL (8.5-10.1)
[2022-05-16 08:34] LABS: CREATININE 0.3 mg/dL (0.55-1.3)
[2022-05-16 08:36] LABS: BILIRUBIN,TOTAL 0.2 mg/dL (0.2-1); TOT PROT 4.9 g/dl (6.4-8.2)
[2022-05-16] MEDS: ALBUTEROL SO4 2.5/IPRATROPIUM 0.5 INH SOL 3 ML VIAL.NEB. NEB SCH ×4 (08:45→20:22)
[2022-05-16] MEDS: CARBIDOPA/LEVODOPA 10/100 TABLET (FP) NGT SCH ×4 (09:28→22:17)
[2022-05-16] MEDS: LACTOBACILLUS ACIDOPHILUS 1 TABLET NGT SCH (09:28)
[2022-05-16] MEDS: COLLAGENASE CLOSTRIDIUM HIST. 30 GRAMS TUBE TP SCH (09:28)
[2022-05-16] MEDS: ESCITALOPRAM OXALATE 5 MG/5 ML NGT SCH (09:28)
[2022-05-16] MEDS: PANTOPRAZOLE SODIUM 40 MG VIAL IVPUSH SCH ×2 (09:28→22:18)
[2022-05-16] MEDS: ASCORBIC ACID 500 MG/5 ML UNIT DOSE CUP GT SCH (09:28)
[2022-05-16] MEDS: MIDODRINE HCL 5 MG TABLET PO SCH ×3 (09:30→18:18)
[2022-05-16] MEDS ORDERED: FUROSEMIDE 40 MG/4 ML INJECTABLE VIAL IVPUSH ONE (11:22)
[2022-05-17] MEDS: PIPERACILLIN/TAZOB 3.375 GM 3.375 GM in DEXTROSE 5%-WATER - 50 ML IVPB SCH ×3 (01:49→17:31)
[2022-05-17] MEDS: HEPARIN NA (PORCINE) 5,000 UNITS/ML 1ML VIAL SQ SCH ×3 (05:50→21:40)
[2022-05-17 06:52] LABS: EOS % 1.5 % (0-4.5); HEMOGLOBIN 9.1 GM/dL (10.7-15.3); LYMPH % 13.9 % (8-40); MCH 31.5 pg (25.7-33.7); MCHC 33.6 g/dl (32.0-36.0); MEAN CELL VOLUME 93.8 fl (80-96); MEAN PLT VOLUME 9.2 fl (7.5-11.1); MONO % 6.7 % (3.8-10.2); NEUT % 76.9 % (42.8-82.8); PLATELET COUNT 335 10^3/uL (134-434); RBC 2.88 M/mm3 (3.60-5.2); WHITE BLOOD COUNT 8.1 K/mm3 (4.0-10.0)
[2022-05-17] MEDS: ALBUTEROL SO4 2.5/IPRATROPIUM 0.5 INH SOL 3 ML VIAL.NEB. NEB SCH ×4 (07:15→20:43)
[2022-05-17 07:21] LABS: CALCIUM 7.8 mg/dL (8.5-10.1)
[2022-05-17 07:22] LABS: ALBUMIN 1.5 g/dl (3.4-5.0); MAGNESIUM 2.1 mg/dL (1.8-2.4)
[2022-05-17 07:25] LABS: CREATININE 0.4 mg/dL (0.55-1.3)
[2022-05-17 07:26] LABS: TOT PROT 5.4 g/dl (6.4-8.2)
[2022-05-17 07:27] LABS: BILIRUBIN,TOTAL 0.3 mg/dL (0.2-1)
[2022-05-17] MEDS: MIDODRINE HCL 5 MG TABLET PO SCH ×3 (09:48→18:22)
[2022-05-17] MEDS: LACTOBACILLUS ACIDOPHILUS 1 TABLET NGT SCH (09:48)
[2022-05-17] MEDS: CARBIDOPA/LEVODOPA 10/100 TABLET (FP) NGT SCH ×4 (09:48→21:39)
[2022-05-17] MEDS: ESCITALOPRAM OXALATE 5 MG/5 ML NGT SCH (09:49)
[2022-05-17] MEDS: PANTOPRAZOLE SODIUM 40 MG VIAL IVPUSH SCH ×2 (09:49→21:39)
[2022-05-17] MEDS: COLLAGENASE CLOSTRIDIUM HIST. 30 GRAMS TUBE TP SCH (09:49)
[2022-05-17] MEDS: ASCORBIC ACID 500 MG/5 ML UNIT DOSE CUP GT SCH (09:50)
[2022-05-17] MEDS ORDERED: FUROSEMIDE 40 MG/4 ML INJECTABLE VIAL IVPUSH ONE (11:25)
[2022-05-17 17:53] VITALS: BMI 18.1
[2022-05-18] MEDS: PIPERACILLIN/TAZOB 3.375 GM 3.375 GM in DEXTROSE 5%-WATER - 50 ML IVPB SCH ×3 (01:01→17:13)
[2022-05-18] MEDS: HEPARIN NA (PORCINE) 5,000 UNITS/ML 1ML VIAL SQ SCH ×3 (05:59→21:22)
[2022-05-18] MEDS: ALBUTEROL SO4 2.5/IPRATROPIUM 0.5 INH SOL 3 ML VIAL.NEB. NEB SCH ×4 (07:18→20:27)
[2022-05-18 07:24] LABS: BASO % 1.2 % (0-2.0); EOS % 1.8 % (0-4.5); HEMATOCRIT 25.5 % (32.4-45.2); HEMOGLOBIN 8.8 GM/dL (10.7-15.3); LYMPH % 11.9 % (8-40); MCH 32.2 pg (25.7-33.7); MCHC 34.5 g/dl (32.0-36.0); MEAN CELL VOLUME 93.2 fl (80-96); MEAN PLT VOLUME 8.8 fl (7.5-11.1); MONO % 4.9 % (3.8-10.2); NEUT % 80.2 % (42.8-82.8); PLATELET COUNT 346 10^3/uL (134-434); RBC 2.74 M/mm3 (3.60-5.2); RDW 16.9 % (11.6-15.6); WHITE BLOOD COUNT 8.1 K/mm3 (4.0-10.0)
[2022-05-18 07:28] LABS: CALCIUM 7.8 mg/dL (8.5-10.1)
[2022-05-18 07:29] LABS: ALBUMIN 1.6 g/dl (3.4-5.0); BLOOD UREA NITROGEN 18.6 mg/dL (7-18); MAGNESIUM 2.3 mg/dL (1.8-2.4)
[2022-05-18 07:32] LABS: CREATININE 0.5 mg/dL (0.55-1.3); PHOSPHOROUS 3.5 mg/dL (2.5-4.9)
[2022-05-18 07:33] LABS: BILIRUBIN,TOTAL 0.3 mg/dL (0.2-1); TOT PROT 5.8 g/dl (6.4-8.2)
[2022-05-18] MEDS: MIDODRINE HCL 5 MG TABLET PO SCH ×3 (09:33→17:13)
[2022-05-18] MEDS: PANTOPRAZOLE SODIUM 40 MG VIAL IVPUSH SCH ×2 (09:33→21:23)
[2022-05-18] MEDS: LACTOBACILLUS ACIDOPHILUS 1 TABLET NGT SCH (09:34)
[2022-05-18] MEDS: CARBIDOPA/LEVODOPA 10/100 TABLET (FP) NGT SCH ×4 (09:34→21:22)
[2022-05-18] MEDS: ASCORBIC ACID 500 MG/5 ML UNIT DOSE CUP GT SCH (09:35)
[2022-05-18] MEDS: ESCITALOPRAM OXALATE 5 MG/5 ML NGT SCH (09:35)
[2022-05-18] MEDS: COLLAGENASE CLOSTRIDIUM HIST. 30 GRAMS TUBE TP SCH (09:36)
[2022-05-18] MEDS: POLYETHYLENE GLYCOL (HEALTHYLAX) 3350 17 GM PACKET NGT SCH (10:08)
[2022-05-19] MEDS: PIPERACILLIN/TAZOB 3.375 GM 3.375 GM in DEXTROSE 5%-WATER - 50 ML IVPB SCH ×3 (01:05→17:04)
[2022-05-19] MEDS: HEPARIN NA (PORCINE) 5,000 UNITS/ML 1ML VIAL SQ SCH ×3 (06:11→21:27)
[2022-05-19] MEDS: ALBUTEROL SO4 2.5/IPRATROPIUM 0.5 INH SOL 3 ML VIAL.NEB. NEB SCH ×3 (07:15→20:55)
[2022-05-19] MEDS: PANTOPRAZOLE SODIUM 40 MG VIAL IVPUSH SCH ×2 (10:16→21:27)
[2022-05-19] MEDS: LACTOBACILLUS ACIDOPHILUS 1 TABLET NGT SCH (10:17)
[2022-05-19] MEDS: MIDODRINE HCL 5 MG TABLET PO SCH ×3 (10:17→17:04)
[2022-05-19] MEDS: POLYETHYLENE GLYCOL (HEALTHYLAX) 3350 17 GM PACKET NGT SCH (10:21)
[2022-05-19] MEDS: COLLAGENASE CLOSTRIDIUM HIST. 30 GRAMS TUBE TP SCH (10:21)
[2022-05-19] MEDS: ESCITALOPRAM OXALATE 5 MG/5 ML NGT SCH (10:22)
[2022-05-19] MEDS: CARBIDOPA/LEVODOPA 10/100 TABLET (FP) NGT SCH ×4 (10:22→21:27)
[2022-05-19] MEDS: ASCORBIC ACID 500 MG/5 ML UNIT DOSE CUP GT SCH (10:24)
[2022-05-20] MEDS: PIPERACILLIN/TAZOB 3.375 GM 3.375 GM in DEXTROSE 5%-WATER - 50 ML IVPB SCH ×3 (01:19→17:25)
[2022-05-20] MEDS: HEPARIN NA (PORCINE) 5,000 UNITS/ML 1ML VIAL SQ SCH ×3 (05:26→23:11)
[2022-05-20] MEDS: ALBUTEROL SO4 2.5/IPRATROPIUM 0.5 INH SOL 3 ML VIAL.NEB. NEB SCH (08:15)
[2022-05-20] MEDS: POLYETHYLENE GLYCOL (HEALTHYLAX) 3350 17 GM PACKET NGT SCH (10:23)
[2022-05-20] MEDS: ASCORBIC ACID 500 MG/5 ML UNIT DOSE CUP GT SCH (10:24)
[2022-05-20] MEDS: PANTOPRAZOLE SODIUM 40 MG VIAL IVPUSH SCH ×2 (10:24→23:11)
[2022-05-20] MEDS: CARBIDOPA/LEVODOPA 10/100 TABLET (FP) NGT SCH ×4 (10:24→23:11)
[2022-05-20] MEDS: MIDODRINE HCL 5 MG TABLET PO SCH ×3 (10:25→17:25)
[2022-05-20] MEDS: LACTOBACILLUS ACIDOPHILUS 1 TABLET NGT SCH (10:25)
[2022-05-20] MEDS: ESCITALOPRAM OXALATE 5 MG/5 ML NGT SCH (10:25)
[2022-05-20] MEDS: COLLAGENASE CLOSTRIDIUM HIST. 30 GRAMS TUBE TP SCH (14:16)
[2022-05-21] MEDS: PIPERACILLIN/TAZOB 3.375 GM 3.375 GM in DEXTROSE 5%-WATER - 50 ML IVPB SCH ×3 (02:24→17:38)
[2022-05-21] MEDS ORDERED: ACETAMINOPHEN 325 MG TABLET (FP) PO ONE (05:26)
[2022-05-21] MEDS ORDERED: VANCOMYCIN 750 MG in DEXTROSE 5%-WATER - 150 ML IVPB SCH (05:43)
[2022-05-21] MEDS ORDERED: CEFEPIME 2 GM in DEXTROSE 5%-WATER 100 ML IVPB SCH (05:45)
[2022-05-21] MEDS ORDERED: CEFEPIME 2 GM in DEXTROSE 5%-WATER 100 ML IVPB ONE (06:11)
[2022-05-21] MEDS ORDERED: ACETAMINOPHEN 1000 MG/100 ML BAG IVPB ONE (06:30)
[2022-05-21] MEDS: HEPARIN NA (PORCINE) 5,000 UNITS/ML 1ML VIAL SQ SCH ×3 (06:33→22:43)
[2022-05-21] MEDS ORDERED: VANCOMYCIN/WATER FOR INJ (PEG) 750 MG/150 ML BAG IVPB ONE (08:30)
[2022-05-21 09:35] LABS: BASO % 0.5 % (0-2.0); HEMOGLOBIN 8.7 GM/dL (10.7-15.3); LYMPH % 12.2 % (8-40); MCH 31.5 pg (25.7-33.7); MCHC 33.7 g/dl (32.0-36.0); MEAN CELL VOLUME 93.6 fl (80-96); MEAN PLT VOLUME 8.4 fl (7.5-11.1); NEUT % 81.3 % (42.8-82.8); PLATELET COUNT 400 10^3/uL (134-434); RBC 2.78 M/mm3 (3.60-5.2); RDW 17.4 % (11.6-15.6); WHITE BLOOD COUNT 8.1 K/mm3 (4.0-10.0)
[2022-05-21 09:59] LABS: ALBUMIN 1.8 g/dl (3.4-5.0); BLOOD UREA NITROGEN 22.7 mg/dL (7-18); CALCIUM 8.1 mg/dL (8.5-10.1); MAGNESIUM 2.2 mg/dL (1.8-2.4)
[2022-05-21 10:02] LABS: CREATININE 0.5 mg/dL (0.55-1.3); PHOSPHOROUS 3.1 mg/dL (2.5-4.9)
[2022-05-21 10:03] LABS: BILIRUBIN,TOTAL 0.6 mg/dL (0.2-1)
[2022-05-21 10:04] LABS: TOT PROT 6.6 g/dl (6.4-8.2)
[2022-05-21] MEDS: MIDODRINE HCL 5 MG TABLET PO SCH ×3 (10:54→17:35)
[2022-05-21] MEDS: PANTOPRAZOLE SODIUM 40 MG VIAL IVPUSH SCH ×2 (10:58→22:41)
[2022-05-21] MEDS: ASCORBIC ACID 500 MG/5 ML UNIT DOSE CUP GT SCH (10:58)
[2022-05-21] MEDS: LACTOBACILLUS ACIDOPHILUS 1 TABLET NGT SCH (11:01)
[2022-05-21] MEDS: POLYETHYLENE GLYCOL (HEALTHYLAX) 3350 17 GM PACKET NGT SCH (11:01)
[2022-05-21] MEDS: ESCITALOPRAM OXALATE 5 MG/5 ML NGT SCH (11:01)
[2022-05-21] MEDS: CARBIDOPA/LEVODOPA 10/100 TABLET (FP) NGT SCH ×4 (11:02→22:43)
[2022-05-21] MEDS: COLLAGENASE CLOSTRIDIUM HIST. 30 GRAMS TUBE TP SCH (15:25)
[2022-05-21] MEDS: ACETAMINOPHEN 650 MG/20.3 ML ORAL SOLUTION (CUPS) GT PRN ×2 (18:35→23:20)
[2022-05-21] MEDS ORDERED: ALBUTEROL SO4 2.5/IPRATROPIUM 0.5 INH SOL 3 ML VIAL.NEB. NEB ONE (21:19)
[2022-05-22] MEDS: PIPERACILLIN/TAZOB 3.375 GM 3.375 GM in DEXTROSE 5%-WATER - 50 ML IVPB SCH ×3 (01:36→17:56)
[2022-05-22] MEDS: ACETAMINOPHEN 650 MG/20.3 ML ORAL SOLUTION (CUPS) GT PRN (05:23)
[2022-05-22] MEDS: HEPARIN NA (PORCINE) 5,000 UNITS/ML 1ML VIAL SQ SCH ×3 (05:23→23:23)
[2022-05-22 08:25] LABS: BASO % 0.7 % (0-2.0); HEMATOCRIT 25.3 % (32.4-45.2); HEMOGLOBIN 8.7 GM/dL (10.7-15.3); LYMPH % 15.6 % (8-40); MCH 31.9 pg (25.7-33.7); MCHC 34.5 g/dl (32.0-36.0); MEAN CELL VOLUME 92.3 fl (80-96); MONO % 5.8 % (3.8-10.2); NEUT % 76.9 % (42.8-82.8); PLATELET COUNT 389 10^3/uL (134-434); RBC 2.74 M/mm3 (3.60-5.2); RDW 17.6 % (11.6-15.6); WHITE BLOOD COUNT 7.5 K/mm3 (4.0-10.0)
[2022-05-22 08:45] LABS: ALBUMIN 1.8 g/dl (3.4-5.0); BLOOD UREA NITROGEN 22.5 mg/dL (7-18); CALCIUM 7.7 mg/dL (8.5-10.1); MAGNESIUM 2.3 mg/dL (1.8-2.4)
[2022-05-22 08:49] LABS: PHOSPHOROUS 2.4 mg/dL (2.5-4.9)
[2022-05-22 08:50] LABS: BILIRUBIN,TOTAL 0.3 mg/dL (0.2-1); CREATININE 0.4 mg/dL (0.55-1.3); TOT PROT 6.6 g/dl (6.4-8.2)
[2022-05-22] MEDS: CARBIDOPA/LEVODOPA 10/100 TABLET (FP) NGT SCH ×4 (09:10→23:25)
[2022-05-22] MEDS: LACTOBACILLUS ACIDOPHILUS 1 TABLET NGT SCH (09:10)
[2022-05-22] MEDS: PANTOPRAZOLE SODIUM 40 MG VIAL IVPUSH SCH ×2 (09:11→23:23)
[2022-05-22] MEDS: MIDODRINE HCL 5 MG TABLET PO SCH ×3 (09:11→17:56)
[2022-05-22] MEDS: ESCITALOPRAM OXALATE 5 MG/5 ML NGT SCH (09:11)
[2022-05-22] MEDS: COLLAGENASE CLOSTRIDIUM HIST. 30 GRAMS TUBE TP SCH (09:53)
[2022-05-22] MEDS: POLYETHYLENE GLYCOL (HEALTHYLAX) 3350 17 GM PACKET NGT SCH (10:27)
[2022-05-22 11:24] LABS: PH,URINE 5.5 (5.0-8.0); URINE APPEARANCE CLEAR; URINE BILIRUBIN NEGATIVE (NEGATIVE); URINE COLOR YELLOW; URINE GLUCOSE (UA) NEGATIVE (NEGATIVE); URINE KETONE NEGATIVE (NEGATIVE); URINE LEUK ESTERASE NEGATIVE (NEGATIVE); URINE NITRITE NEGATIVE (NEGATIVE); URINE PROTEIN TRACE (NEGATIVE); URINE UROBILINOGEN 0.2 mg/dL (0.2-1.0)
[2022-05-22] MEDS ORDERED: ACETAMINOPHEN 1000 MG/100 ML BAG IVPB PRN ×2 (11:25→11:44)
[2022-05-22] MEDS: ASCORBIC ACID 500 MG/5 ML UNIT DOSE CUP GT SCH ×2 (13:48→13:52)
[2022-05-22] MEDS ORDERED: POTASSIUM PHOSPHATE 30 MM in SODIUM CHLORIDE 500 ML IVPB ONE (13:59)
[2022-05-23] MEDS: PIPERACILLIN/TAZOB 3.375 GM 3.375 GM in DEXTROSE 5%-WATER - 50 ML IVPB SCH ×3 (01:46→17:17)
[2022-05-23] MEDS: HEPARIN NA (PORCINE) 5,000 UNITS/ML 1ML VIAL SQ SCH ×3 (05:03→22:35)
[2022-05-23] MEDS: ACETAMINOPHEN 1000 MG/100 ML BAG IVPB PRN ×3 (05:56→20:14)
[2022-05-23 07:41] LABS: BASO % 0.7 % (0-2.0); EOS % 3.5 % (0-4.5); HEMATOCRIT 25.2 % (32.4-45.2); HEMOGLOBIN 8.7 GM/dL (10.7-15.3); LYMPH % 16.4 % (8-40); MCHC 34.3 g/dl (32.0-36.0); MEAN CELL VOLUME 93.3 fl (80-96); MEAN PLT VOLUME 7.8 fl (7.5-11.1); MONO % 4.5 % (3.8-10.2); NEUT % 74.9 % (42.8-82.8); PLATELET COUNT 360 10^3/uL (134-434); RDW 17.3 % (11.6-15.6); WHITE BLOOD COUNT 6.9 K/mm3 (4.0-10.0)
[2022-05-23 07:55] LABS: CALCIUM 8.1 mg/dL (8.5-10.1)
[2022-05-23 07:56] LABS: ALBUMIN 1.8 g/dl (3.4-5.0); MAGNESIUM 2.2 mg/dL (1.8-2.4)
[2022-05-23 07:59] LABS: CREATININE 0.4 mg/dL (0.55-1.3); PHOSPHOROUS 2.5 mg/dL (2.5-4.9)
[2022-05-23 08:00] LABS: BILIRUBIN,TOTAL 0.2 mg/dL (0.2-1); TOT PROT 6.4 g/dl (6.4-8.2)
[2022-05-23 08:10] LABS: BLOOD UREA NITROGEN 23.6 mg/dL (7-18)
[2022-05-23] MEDS ORDERED: ASCORBIC ACID 500 MG/5 ML UNIT DOSE CUP GT SCH (10:00)
[2022-05-23] MEDS: PANTOPRAZOLE SODIUM 40 MG VIAL IVPUSH SCH ×2 (10:38→22:36)
[2022-05-23] MEDS: MIDODRINE HCL 5 MG TABLET PO SCH ×3 (10:40→17:16)
[2022-05-23] MEDS: ASCORBIC ACID 500 MG/5 ML UNIT DOSE CUP GT SCH (10:40)
[2022-05-23] MEDS: LACTOBACILLUS ACIDOPHILUS 1 TABLET NGT SCH (10:41)
[2022-05-23] MEDS: POLYETHYLENE GLYCOL (HEALTHYLAX) 3350 17 GM PACKET NGT SCH (10:41)
[2022-05-23] MEDS: ESCITALOPRAM OXALATE 5 MG/5 ML NGT SCH (10:42)
[2022-05-23] MEDS: CARBIDOPA/LEVODOPA 10/100 TABLET (FP) NGT SCH ×4 (10:43→22:36)
[2022-05-23] MEDS: COLLAGENASE CLOSTRIDIUM HIST. 30 GRAMS TUBE TP SCH (14:00)
[2022-05-24] MEDS: PIPERACILLIN/TAZOB 3.375 GM 3.375 GM in DEXTROSE 5%-WATER - 50 ML IVPB SCH ×3 (03:03→17:43)
[2022-05-24] MEDS: HEPARIN NA (PORCINE) 5,000 UNITS/ML 1ML VIAL SQ SCH ×3 (05:52→21:01)
[2022-05-24 07:45] LABS: BASO % 0.9 % (0-2.0); EOS % 5.2 % (0-4.5); HEMOGLOBIN 8.5 GM/dL (10.7-15.3); LYMPH % 19.5 % (8-40); MCHC 34.2 g/dl (32.0-36.0); MEAN CELL VOLUME 93.4 fl (80-96); MEAN PLT VOLUME 7.7 fl (7.5-11.1); MONO % 4.7 % (3.8-10.2); NEUT % 69.7 % (42.8-82.8); PLATELET COUNT 326 10^3/uL (134-434); RBC 2.67 M/mm3 (3.60-5.2); WHITE BLOOD COUNT 6.2 K/mm3 (4.0-10.0)
[2022-05-24 08:04] LABS: ALBUMIN 1.9 g/dl (3.4-5.0); CALCIUM 8.1 mg/dL (8.5-10.1); MAGNESIUM 2.3 mg/dL (1.8-2.4)
[2022-05-24 08:05] LABS: BLOOD UREA NITROGEN 23.8 mg/dL (7-18)
[2022-05-24 08:08] LABS: CREATININE 0.4 mg/dL (0.55-1.3)
[2022-05-24 08:09] LABS: BILIRUBIN,TOTAL 0.3 mg/dL (0.2-1); TOT PROT 6.2 g/dl (6.4-8.2)
[2022-05-24] MEDS: LACTOBACILLUS ACIDOPHILUS 1 TABLET NGT SCH (10:01)
[2022-05-24] MEDS: MIDODRINE HCL 5 MG TABLET PO SCH ×3 (10:01→17:44)
[2022-05-24] MEDS: POLYETHYLENE GLYCOL (HEALTHYLAX) 3350 17 GM PACKET NGT SCH (10:02)
[2022-05-24] MEDS: ESCITALOPRAM OXALATE 5 MG/5 ML NGT SCH (10:02)
[2022-05-24] MEDS: PANTOPRAZOLE SODIUM 40 MG VIAL IVPUSH SCH ×2 (10:02→21:01)
[2022-05-24] MEDS: ASCORBIC ACID 500 MG/5 ML UNIT DOSE CUP GT SCH (10:02)
[2022-05-24] MEDS: CARBIDOPA/LEVODOPA 10/100 TABLET (FP) NGT SCH ×4 (10:03→21:01)
[2022-05-24] MEDS: COLLAGENASE CLOSTRIDIUM HIST. 30 GRAMS TUBE TP SCH (10:04)
[2022-05-24] MEDS ORDERED: INSULIN (NOVOLOG) ASPART 100 UNITS/ML 10ML VIAL ONE ×3 (11:39→17:12)
[2022-05-24] MEDS: BANATROL PLUS POWDER PACKET GT SCH (21:21)
[2022-05-25] MEDS: PIPERACILLIN/TAZOB 3.375 GM 3.375 GM in DEXTROSE 5%-WATER - 50 ML IVPB SCH ×3 (02:35→17:05)
[2022-05-25] MEDS: HEPARIN NA (PORCINE) 5,000 UNITS/ML 1ML VIAL SQ SCH ×3 (05:05→21:53)
[2022-05-25 08:12] LABS: BASO % 0.8 % (0-2.0); EOS % 4.9 % (0-4.5); HEMATOCRIT 24.4 % (32.4-45.2); HEMOGLOBIN 8.6 GM/dL (10.7-15.3); LYMPH % 20.4 % (8-40); MCH 32.6 pg (25.7-33.7); MEAN CELL VOLUME 93.1 fl (80-96); MEAN PLT VOLUME 7.6 fl (7.5-11.1); MONO % 4.4 % (3.8-10.2); NEUT % 69.5 % (42.8-82.8); PLATELET COUNT 304 10^3/uL (134-434); RBC 2.62 M/mm3 (3.60-5.2); RDW 17.1 % (11.6-15.6); WHITE BLOOD COUNT 5.9 K/mm3 (4.0-10.0)
[2022-05-25 08:50] LABS: BLOOD UREA NITROGEN 23.4 mg/dL (7-18); MAGNESIUM 2.1 mg/dL (1.8-2.4)
[2022-05-25 08:52] LABS: CREATININE 0.4 mg/dL (0.55-1.3); PHOSPHOROUS 2.9 mg/dL (2.5-4.9)
[2022-05-25 08:54] LABS: BILIRUBIN,TOTAL 0.2 mg/dL (0.2-1); TOT PROT 6.3 g/dl (6.4-8.2)
[2022-05-25] MEDS: LACTOBACILLUS ACIDOPHILUS 1 TABLET NGT SCH (10:18)
[2022-05-25] MEDS: ESCITALOPRAM OXALATE 5 MG/5 ML NGT SCH (10:19)
[2022-05-25] MEDS: MIDODRINE HCL 5 MG TABLET PO SCH ×3 (10:19→17:05)
[2022-05-25] MEDS: POLYETHYLENE GLYCOL (HEALTHYLAX) 3350 17 GM PACKET NGT SCH (10:19)
[2022-05-25] MEDS: BANATROL PLUS POWDER PACKET GT SCH ×2 (10:19→21:54)
[2022-05-25] MEDS: PANTOPRAZOLE SODIUM 40 MG VIAL IVPUSH SCH ×2 (10:20→21:53)
[2022-05-25] MEDS: CARBIDOPA/LEVODOPA 10/100 TABLET (FP) NGT SCH ×4 (10:20→21:54)
[2022-05-25] MEDS: ASCORBIC ACID 500 MG/5 ML UNIT DOSE CUP GT SCH (10:20)
[2022-05-25] MEDS: COLLAGENASE CLOSTRIDIUM HIST. 30 GRAMS TUBE TP SCH (17:07)
[2022-05-26] MEDS: PIPERACILLIN/TAZOB 3.375 GM 3.375 GM in DEXTROSE 5%-WATER - 50 ML IVPB SCH ×3 (01:21→17:39)
[2022-05-26] MEDS: HEPARIN NA (PORCINE) 5,000 UNITS/ML 1ML VIAL SQ SCH ×3 (06:47→23:17)
[2022-05-26] MEDS: POLYETHYLENE GLYCOL (HEALTHYLAX) 3350 17 GM PACKET NGT SCH (09:11)
[2022-05-26] MEDS: BANATROL PLUS POWDER PACKET GT SCH ×2 (09:11→23:17)
[2022-05-26] MEDS: MIDODRINE HCL 5 MG TABLET PO SCH ×3 (09:12→17:39)
[2022-05-26] MEDS: ESCITALOPRAM OXALATE 5 MG/5 ML NGT SCH (09:12)
[2022-05-26] MEDS: LACTOBACILLUS ACIDOPHILUS 1 TABLET NGT SCH (09:12)
[2022-05-26] MEDS: PANTOPRAZOLE SODIUM 40 MG VIAL IVPUSH SCH ×2 (09:13→23:17)
[2022-05-26] MEDS: ASCORBIC ACID 500 MG/5 ML UNIT DOSE CUP GT SCH (09:13)
[2022-05-26] MEDS: CARBIDOPA/LEVODOPA 10/100 TABLET (FP) NGT SCH ×4 (09:13→23:17)
[2022-05-26] MEDS: ACETAMINOPHEN 1000 MG/100 ML BAG IVPB PRN (10:18)
[2022-05-26] MEDS: COLLAGENASE CLOSTRIDIUM HIST. 30 GRAMS TUBE TP SCH (17:37)
[2022-05-27] MEDS: PIPERACILLIN/TAZOB 3.375 GM 3.375 GM in DEXTROSE 5%-WATER - 50 ML IVPB SCH ×3 (01:31→17:08)
[2022-05-27] MEDS: HEPARIN NA (PORCINE) 5,000 UNITS/ML 1ML VIAL SQ SCH ×3 (06:43→23:10)
[2022-05-27] MEDS: POLYETHYLENE GLYCOL (HEALTHYLAX) 3350 17 GM PACKET NGT SCH (11:35)
[2022-05-27] MEDS: MIDODRINE HCL 5 MG TABLET PO SCH ×3 (11:36→17:17)
[2022-05-27] MEDS: PANTOPRAZOLE SODIUM 40 MG VIAL IVPUSH SCH ×2 (11:36→23:10)
[2022-05-27] MEDS: ASCORBIC ACID 500 MG/5 ML UNIT DOSE CUP GT SCH (11:36)
[2022-05-27] MEDS: LACTOBACILLUS ACIDOPHILUS 1 TABLET NGT SCH (11:36)
[2022-05-27] MEDS: BANATROL PLUS POWDER PACKET GT SCH ×2 (11:37→23:10)
[2022-05-27] MEDS: CARBIDOPA/LEVODOPA 10/100 TABLET (FP) NGT SCH ×4 (11:37→23:00)
[2022-05-27] MEDS: COLLAGENASE CLOSTRIDIUM HIST. 30 GRAMS TUBE TP SCH (11:38)
[2022-05-27] MEDS: ESCITALOPRAM OXALATE 5 MG/5 ML NGT SCH (11:58)
[2022-05-28] MEDS: PIPERACILLIN/TAZOB 3.375 GM 3.375 GM in DEXTROSE 5%-WATER - 50 ML IVPB SCH ×3 (02:44→18:17)
[2022-05-28] MEDS: HEPARIN NA (PORCINE) 5,000 UNITS/ML 1ML VIAL SQ SCH ×3 (05:41→21:55)
[2022-05-28 08:24] LABS: BASO % 0.5 % (0-2.0); EOS % 4.1 % (0-4.5); HEMATOCRIT 24.8 % (32.4-45.2); HEMOGLOBIN 8.8 GM/dL (10.7-15.3); LYMPH % 17.5 % (8-40); MCH 33.2 pg (25.7-33.7); MCHC 35.3 g/dl (32.0-36.0); MEAN CELL VOLUME 94.2 fl (80-96); MEAN PLT VOLUME 8.3 fl (7.5-11.1); MONO % 5.3 % (3.8-10.2); NEUT % 72.6 % (42.8-82.8); PLATELET COUNT 289 10^3/uL (134-434); RBC 2.64 M/mm3 (3.60-5.2); RDW 17.7 % (11.6-15.6); WHITE BLOOD COUNT 5.8 K/mm3 (4.0-10.0)
[2022-05-28 08:51] LABS: CALCIUM 7.9 mg/dL (8.5-10.1)
[2022-05-28 08:52] LABS: ALBUMIN 2.1 g/dl (3.4-5.0); BLOOD UREA NITROGEN 20.6 mg/dL (7-18); MAGNESIUM 2.1 mg/dL (1.8-2.4)
[2022-05-28 08:53] LABS: PHOSPHOROUS 2.7 mg/dL (2.5-4.9)
[2022-05-28 08:54] LABS: TOT PROT 6.3 g/dl (6.4-8.2)
[2022-05-28 08:55] LABS: BILIRUBIN,TOTAL 0.2 mg/dL (0.2-1); CREATININE 0.3 mg/dL (0.55-1.3)
[2022-05-28] MEDS: ASCORBIC ACID 500 MG/5 ML UNIT DOSE CUP GT SCH (10:48)
[2022-05-28] MEDS: MIDODRINE HCL 5 MG TABLET PO SCH ×3 (10:49→18:37)
[2022-05-28] MEDS: CARBIDOPA/LEVODOPA 10/100 TABLET (FP) NGT SCH ×4 (10:49→21:54)
[2022-05-28] MEDS: ESCITALOPRAM OXALATE 5 MG/5 ML NGT SCH (10:50)
[2022-05-28] MEDS: LACTOBACILLUS ACIDOPHILUS 1 TABLET NGT SCH (10:51)
[2022-05-28] MEDS: POLYETHYLENE GLYCOL (HEALTHYLAX) 3350 17 GM PACKET NGT SCH (10:51)
[2022-05-28] MEDS: BANATROL PLUS POWDER PACKET GT SCH ×2 (10:51→21:54)
[2022-05-28] MEDS: PANTOPRAZOLE SODIUM 40 MG VIAL IVPUSH SCH ×2 (11:47→21:55)
[2022-05-28] MEDS: COLLAGENASE CLOSTRIDIUM HIST. 30 GRAMS TUBE TP SCH (11:48)
[2022-05-29] MEDS: PIPERACILLIN/TAZOB 3.375 GM 3.375 GM in DEXTROSE 5%-WATER - 50 ML IVPB SCH ×2 (01:37→10:28)
[2022-05-29] MEDS: HEPARIN NA (PORCINE) 5,000 UNITS/ML 1ML VIAL SQ SCH (06:38)
[2022-05-29] MEDS ORDERED: AMINO ACIDS/PROTEIN HYDROLYS 30 ML LIQUID.PKT PO SCH (08:00)
[2022-05-29] MEDS: LACTOBACILLUS ACIDOPHILUS 1 TABLET NGT SCH (10:23)
[2022-05-29] MEDS: BANATROL PLUS POWDER PACKET GT SCH (10:23)
[2022-05-29] MEDS: POLYETHYLENE GLYCOL (HEALTHYLAX) 3350 17 GM PACKET NGT SCH (10:23)
[2022-05-29] MEDS: ESCITALOPRAM OXALATE 5 MG/5 ML NGT SCH (10:23)
[2022-05-29] MEDS: CARBIDOPA/LEVODOPA 10/100 TABLET (FP) NGT SCH ×3 (10:24→18:40)
[2022-05-29] MEDS: ASCORBIC ACID 500 MG/5 ML UNIT DOSE CUP GT SCH (10:24)
[2022-05-29] MEDS: PANTOPRAZOLE SODIUM 40 MG VIAL IVPUSH SCH (10:24)
[2022-05-29] MEDS: MIDODRINE HCL 5 MG TABLET PO SCH ×3 (10:24→18:40)
[2022-05-29] MEDS: ACETAMINOPHEN 1000 MG/100 ML BAG IVPB PRN (10:27)
[2022-05-29 12:14] VITALS: RESP 18
[2022-05-29 13:52] VITALS: BP 110/59; PULSE 82; TEMP 99.8
[2022-05-29] MEDS ORDERED: HEPARIN NA (PORCINE) 5,000 UNITS/ML 1ML VIAL SQ SCH (15:00)
[2022-05-29] MEDS ORDERED: ACETAMINOPHEN 650 MG/20.3 ML ORAL SOLUTION (CUPS) PO PRN (15:04)
[2022-05-29] MEDS ORDERED: ACETAMINOPHEN 650 MG/20.3 ML ORAL SOLUTION (CUPS) GT PRN (15:07)
[2022-05-29] MEDS: COLLAGENASE CLOSTRIDIUM HIST. 30 GRAMS TUBE TP SCH (15:21)
[2022-05-29] MEDS ORDERED: IBUPROFEN 100 MG/5 ML UNIT DOSE CUPS GT PRN (22:00)
== END 2022-05-29 19:30 | disposition hospice, inpatient (51) | DRG 871 ==
LOC: JER 12:04 → JERBED 14:20 → JICU 19:14 → J2W 05-10 21:06 → J7W 05-19 15:31
PROVIDERS: ADMIT Internal Medicine Pulmonary Disease
PROC: 05HM33Z Insertion of Infusion Device into Right Internal Jugular Vein, Percutaneous Approach (ICD-10-PCS; 2022-05-07)
PROC: B543ZZA Ultrasonography of Right Jugular Veins, Guidance (ICD-10-PCS; 2022-05-07)
PROC: 30233N1 Transfusion of Nonautologous Red Blood Cells into Peripheral Vein, Percutaneous Approach (ICD-10-PCS; principal; 2022-05-14)
DX: A41.51 Sepsis due to Escherichia coli [E. coli] (principal); E43 Unspecified severe protein-calorie malnutrition; J96.01 Acute respiratory failure with hypoxia; R65.21 Severe sepsis with septic shock; R53.2 Functional quadriplegia; J96.02 Acute respiratory failure with hypercapnia; J69.0 Pneumonitis due to inhalation of food and vomit; N17.9 Acute kidney failure, unspecified; N39.0 Urinary tract infection, site not specified; E87.0 Hyperosmolality and hypernatremia; Z68.1 Body mass index [BMI] 19.9 or less, adult; R64 Cachexia; E87.3 Alkalosis; G20 Parkinson's disease; L89.150 Pressure ulcer of sacral region, unstageable; D64.9 Anemia, unspecified; F32.9 Major depressive disorder, single episode, unspecified
CPT/HCPCS: 0241U-QW; 36415; 36430; 36600; 71045-TC-FY; 74230-TC-FY; 80048; 80053; 81003; 82272; 82728; 82803; 82962; 83540; 83550; 83605; 83615; 83735; 84100; 84484; 85025; 85027; 85045; 85610; 85730; 86850; 86900; 86901; 86922; 87040; 87070; 87077; 87086; 87186; 87205; 87899; 92611-GN; 93005; 93010; 94640; 94660; 99285-25; C9803-CS; J1644; P9058; U0003; U0005